=== PATIENT | female | born 2000 | race African-American/Black ===

== ENCOUNTER 2018-11-26 16:16 | Emergency (ER) | payer MEDICAID, OTHER ==
[~2018-11-26] VITALS: Ht 165.1 cm; Wt 82.0 kg
[2018-11-26 16:18] VITALS: BP 129/72
== END 2018-11-26 18:40 | disposition home or self-care (01) ==
LOC: ER 16:16
DX: S60.221A Contusion of right hand, initial encounter (principal); W22.8XXA Striking against or struck by other objects, initial encounter; Y93.89 Activity, other specified; Y92.89 Other specified places as the place of occurrence of the external cause; Y99.9 Unspecified external cause status
CPT/HCPCS: 29125; 73130; 73630; 99283